=== PATIENT | female | born 1970 | race Caucasian/White ===

== ENCOUNTER 2017-08-22 18:25 | Emergency (ER) | payer BC, OTHER ==
[~2017-08-22] VITALS: Ht 165.1 cm; Wt 49.0 kg
[~2017-08-22 18:25] MED LIST: [UNRECOGNIZED DRUG - CODE] PO
[2017-08-22] MEDS ORDERED: BUPR300T52 PO (19:19)
[2017-08-22] MEDS ORDERED: ALPR0.5T PO (19:19)
--- NOTE | 2017-08-22 19:29 | NUR ---
Dr. Fontenot at bedside for MSE
--- NOTE | 2017-08-22 20:38 | NUR ---
Patient discharged to home in stable conditon. Written and verbal after care instructions given. Patient verbalizes understanding of instructions. WALKED OUT OF ER WITH NO DISTRESS NOTED
[2017-08-22 20:39] VITALS: BP 138/68
== END 2017-08-22 20:40 | disposition home or self-care (01) ==
LOC: ER 18:26
DX: S61.012A Laceration without foreign body of left thumb without damage to nail, initial encounter (principal); G43.909 Migraine, unspecified, not intractable, without status migrainosus; W26.0XXA Contact with knife, initial encounter; Y93.89 Activity, other specified; Y92.9 Unspecified place or not applicable; Y99.9 Unspecified external cause status
CPT/HCPCS: 90715; A4663; J0696